=== PATIENT | male | born 1975 | race Caucasian/White ===

== ENCOUNTER 2018-12-03 16:44 | Emergency (ER) | payer OTHER ==
[~2018-12-03] VITALS: Ht 167.6 cm; Wt 81.7 kg
[~2018-12-03 16:44] MED LIST: NAPROSYN500 MG PO
[2018-12-03] MEDS ORDERED: ROBAXIN 750 MG750 M1 PO (18:05)
[2018-12-03] MEDS ORDERED: NABUMETONE 750750 M1 PO (18:05)
[2018-12-03] MEDS ORDERED: MEDROLDOSEPACK PO (18:06)
[2018-12-03 18:25] VITALS: BP 174/98
== END 2018-12-03 18:25 | disposition home or self-care (01) ==
LOC: M.ERS 16:44
DX: S76.812A Strain of other specified muscles, fascia and tendons at thigh level, left thigh, initial encounter (principal); M43.06 Spondylolysis, lumbar region; M54.41 Lumbago with sciatica, right side; M54.42 Lumbago with sciatica, left side; Z88.8 Allergy status to other drugs, medicaments and biological substances; W11.XXXA Fall on and from ladder, initial encounter; Y93.89 Activity, other specified; Y92.89 Other specified places as the place of occurrence of the external cause; Y99.8 Other external cause status